=== PATIENT | female | born 1960 | race Caucasian/White ===

== ENCOUNTER 2023-12-17 06:56 | Day surgery (SDC) | payer BC, OTHER ==
[2023-12-17] MEDS: Sodium Chloride 0.9% 10 ML Syringe FLUSH PRN (07:26)
[2023-12-17] MEDS ORDERED: Acetaminophen/Codeine 300-30 MG Tab PO PRN (07:30)
[2023-12-17] MEDS ORDERED: Ondansetron 4 MG/2 ML SDV IVPUSH PRN (07:30)
[2023-12-17] MEDS ORDERED: Acetaminophen 325 MG Tab PO PRN (07:30)
[2023-12-17] MEDS: Cataract Ophth Solution EYELF ONE (07:33)
[2023-12-17] MEDS: Povidone-Iodine 5% Sterile Ophth Soln 30 ML Bottle EYELF ONE ×2 (07:34→08:25)
[2023-12-17] MEDS: Phenylephrine 10% Ophth Soln 5 ML Bot EYELF ONE (07:34)
[2023-12-17] MEDS: Proparacaine 0.5% Ophth Soln 15 ML Bottle EYELF ONE ×2 (07:34→08:25)
[2023-12-17] MEDS: Timolol Maleate 0.5% Ophth Soln 5 ML Bottle EYELF ONE (07:35)
[2023-12-17] MEDS: Tropicamide 1% Ophth Soln 15 ML Bottle EYELF ONE (07:35)
[2023-12-17] MEDS: Moxifloxacin 0.5% Ophth Soln 3 ML Bottle EYELF ONE (07:35)
[2023-12-17] MEDS: Lidocaine 1% 30 ML SDV ONE (08:25)
[2023-12-17] MEDS: Diclofenac Sodium 0.1% Ophth Soln 5 ML Bottle EYELF ONE (08:26)
[2023-12-17] MEDS: Dexamethasone/Neomycin/Polymyxin B Ophth Oint 3.5 GM Tube EYELF ONE (08:26)
[2023-12-17] MEDS: Apraclonidine 0.5% Ophth Soln 5 ML Bot EYELF ONE (08:26)
[2023-12-17] MEDS: Vancomycin 500 MG SDV EYELF ONE (08:26)
== END 2023-12-17 09:13 | disposition home or self-care (01) ==
LOC: DL.SDS 06:56
PROVIDERS: ATTEND Ophthalmology
DX: E11.36 Type 2 diabetes mellitus with diabetic cataract (principal); H25.812 Combined forms of age-related cataract, left eye; E11.65 Type 2 diabetes mellitus with hyperglycemia; H61.23 Impacted cerumen, bilateral; E66.01 Morbid (severe) obesity due to excess calories; Z68.39 Body mass index [BMI] 39.0-39.9, adult; Z79.84 Long term (current) use of oral hypoglycemic drugs; Z79.899 Other long term (current) drug therapy
CPT/HCPCS: A9270-GY; J3370; J3490; V2632

== ENCOUNTER 2024-01-07 08:21 | Day surgery (SDC) | payer BC ==
[2024-01-07] MEDS: Proparacaine 0.5% Ophth Soln 15 ML Bottle EYERT ONE ×2 (08:49→10:15)
[2024-01-07] MEDS: Moxifloxacin 0.5% Ophth Soln 3 ML Bottle EYERT ONE (08:50)
[2024-01-07] MEDS: Povidone-Iodine 5% Sterile Ophth Soln 30 ML Bottle EYERT ONE ×2 (08:51→10:15)
[2024-01-07] MEDS: Phenylephrine 10% Ophth Soln 5 ML Bot EYERT ONE (08:52)
[2024-01-07] MEDS: Tropicamide 1% Ophth Soln 15 ML Bottle EYERT ONE (08:52)
[2024-01-07] MEDS: Timolol Maleate 0.5% Ophth Soln 5 ML Bottle EYERT ONE (08:53)
[2024-01-07] MEDS: Cataract Ophth Solution EYERT ONE (08:54)
[2024-01-07] MEDS ORDERED: Sodium Chloride 0.9% 10 ML Syringe FLUSH PRN (10:15)
[2024-01-07] MEDS ORDERED: Acetaminophen 325 MG Tab PO PRN (10:15)
[2024-01-07] MEDS ORDERED: Ondansetron 4 MG/2 ML SDV IVPUSH PRN (10:15)
[2024-01-07] MEDS: Lidocaine 1% 30 ML SDV ONE (10:24)
[2024-01-07] MEDS: Vancomycin 500 MG SDV EYERT ONE (10:25)
[2024-01-07] MEDS: Apraclonidine 0.5% Ophth Soln 5 ML Bot EYERT ONE (10:27)
[2024-01-07] MEDS: Diclofenac Sodium 0.1% Ophth Soln 5 ML Bottle EYERT ONE (10:27)
[2024-01-07] MEDS: Dexamethasone/Neomycin/Polymyxin B Ophth Oint 3.5 GM Tube EYERT ONE (10:27)
== END 2024-01-07 11:10 | disposition home or self-care (01) ==
LOC: DL.SDS 08:21
PROVIDERS: ATTEND Ophthalmology
DX: E11.36 Type 2 diabetes mellitus with diabetic cataract (principal); H25.811 Combined forms of age-related cataract, right eye; E11.65 Type 2 diabetes mellitus with hyperglycemia; H61.23 Impacted cerumen, bilateral; E66.01 Morbid (severe) obesity due to excess calories; Z68.39 Body mass index [BMI] 39.0-39.9, adult; Z79.84 Long term (current) use of oral hypoglycemic drugs; Z79.899 Other long term (current) drug therapy
CPT/HCPCS: 66984; A9270; J3370; V2632; J3490